=== PATIENT | male | born 1990 | race American Indian/Alaskan Native ===

== ENCOUNTER 2020-01-31 22:03 | Emergency (ER) | payer SELFPAY ==
[2020-01-31] MEDS ORDERED: TETANUS,DIPHTHERIA TOXOID ADULT 0.5 ML INJ IM ONE (22:45)
[2020-01-31] MEDS ORDERED: NEOMY 3.5 MG/BACIT 400 UNITS/POLY B 5000 UNITS/GM OINT PACKET TP ONE ×2 (22:47→23:08)
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
[2020-01-31 23:08] VITALS: BP 133/83
== END 2020-01-31 23:28 | disposition home or self-care (01) ==
LOC: ED 22:03
DX: S71.101A Unspecified open wound, right thigh, initial encounter (principal); W34.09XA Accidental discharge from other specified firearms, initial encounter; Y93.89 Activity, other specified; Y92.89 Other specified places as the place of occurrence of the external cause; Y99.8 Other external cause status
CPT/HCPCS: 90471; 90714; A6250

== ENCOUNTER 2021-01-25 08:23 | Emergency (ER) | payer SELFPAY ==
[2021-01-25 08:29] VITALS: BP 123/75
[2021-01-25] MEDS ORDERED: IBUPROFEN 800 MG TAB PO ONE (09:52)
--- NOTE | 2021-01-25 09:53 | Emergency Department Report ---
Upper Extremity - HPI Chief Complaint: Extremity Injury, Upper Stated Complaint: RT SHOULDER INJURY Time Seen by Provider: 01/25/21 09:52 Upper Extremity: Right Shoulder Occurred When: >5 Days Mechanism: Unsure Severity: mild Symptoms: Yes Pain with Movement, No Deformity, No Limited Range of Movement, No Numbness, No Weakness, No Swelling, No Bruising/Ecchymosis, No Laceration or Abrasion Other History: Patient is a 30-year-old male that comes to the ER with a 1 week history of right shoulder pain. He has no known trauma. Patient is neurovascularly intact. He has rapid cap refill with good pulses. Full range of motion. ED Review of Systems ROS: Stated complaint: RT SHOULDER INJURY Other details as noted in HPI Comment: All other systems reviewed and negative ED Past Medical Hx - Past Medical History Previous Medical History?: Yes Hx Hypertension: Yes - Surgical History Past Surgical History?: Yes Additional Surgical History: Left femur - Family History Family history: no significant - Social History Smoking Status: Current Every Day Smoker - Medications Home Medications: Home Medications Medication Instructions Recorded Confirmed Last Taken Type Cyclobenzaprine [Flexeril] 10 mg PO TID PRN #10 tablet 01/25/21 Unknown Rx Ibuprofen [Motrin] 800 mg PO Q8HR PRN #30 tablet 01/25/21 Unknown Rx Upper Extremity Exam - Exam General: Vital signs noted. No distress. Alert and acting appropriately. Head and Torso: No HEENT Abnormality, No Neck Tenderness, No Chest/Lungs Abnormality, No Abdominal Tenderness, No Back Tenderness Shoulder Exam: Yes Normal Range of Motion in Shoulder, No Shoulder Tenderness, No Clavicle Tenderness, No Shoulder Deformity, No AC Joint Tenderness Arm Exam: No Arm/Humerus Tenderness, No Arm Deformity Elbow: No Elbow Tenderness, No Normal Range of Motion in Elbow, No Elbow Deformity Forearm: No Forearm Tenderness, No Forearm Deformity, No Pain with Pronation, No Pain with Supination Wrist: Yes Normal ROM in Wrist, No Wrist Tenderness, No Wrist Deformity, No Snuffbox Tenderness, No Pain with Axial Thumb Compression Hand: Yes Normal ROM in Digit(s), No Hand Tenderness, No Hand Deformity, No Digit Tenderness, No Digit(s) Deformity, No Tendon Dysfunction CMS Exam: No Broken Skin, No Normal Distal Pulses, No Normal Capillary Refill, No Normal Distal Sensation ED Course Vital Signs 01/25/21 08:28 Temperature 97.8 F Pulse Rate 60 Respiratory 18 Rate Blood Pressure 123/75 O2 Sat by Pulse 98 Oximetry ED Medical Decision Making - Radiology Data Radiology results: report reviewed, image reviewed No acute process - Medical Decision Making X-ray noted. Patient being discharged home with conservative management. I have asked him to do warm compresses. Patient will be given referral to PCP and orthopedics. Patient verbalizes understanding of discharge plan of care. On discharge she remains neurovascularly intact. Vital Signs 01/25/21 01/25/21 08:28 10:39 Temperature 97.8 F Pulse Rate 60 Respiratory 18 18 Rate Blood Pressure 123/75 O2 Sat by Pulse 98 Oximetry - Differential Diagnosis Rule out dislocation/soft tissue injury/AC separation Critical care attestation.: If time is entered above; I have spent that time in minutes in the direct care of this critically ill patient, excluding procedure time. ED Disposition Clinical Impression: Shoulder pain, right Disposition: DC-01 TO HOME OR SELFCARE Is pt being admited?: No Does the pt Need Aspirin: No Condition: Stable Instructions: Shoulder Pain Additional Instructions: WARM COMPRESSES MEDS ORDERED TODAY FOLLOW UP WITH PCP OR ORTHO MD REFERRAL BELOW Prescriptions: Cyclobenzaprine [Flexeril] 10 mg PO TID PRN #10 tablet PRN Reason: Muscle Spasm Ibuprofen [Motrin] 800 mg PO Q8HR PRN #30 tablet PRN Reason: Pain, Moderate (4-6) Referrals: PRIMARY CAREMD [Primary Care Provider] - 3-5 Days LUCAS MELGOZA MD [Staff Physician] - 3-5 Days MARLEE ZEPEDA MD [Staff Physician] - 3-5 Days Time of Disposition: 10:44
--- NOTE | 2021-01-25 10:46 | XRay Report ---
XR shoulder 2+V RT INDICATION / CLINICAL INFORMATION: shoulder pain. COMPARISON: None available. FINDINGS: BONES/JOINT(S): No acute fracture or subluxation. No significant degenerative changes. SOFT TISSUES: No significant abnormality. ADDITIONAL FINDINGS: None. Signer Name: Vj Odell MD Signed: 01/25/2021 10:42 AM Workstation Name: [id number]
== END 2021-01-25 11:29 | disposition home or self-care (01) ==
LOC: ED 08:23
DX: M25.511 Pain in right shoulder (principal); I10 Essential (primary) hypertension; F17.200 Nicotine dependence, unspecified, uncomplicated; Z98.890 Other specified postprocedural states; Z79.899 Other long term (current) drug therapy
CPT/HCPCS: 99283